=== PATIENT | male | born 1980 | race Caucasian/White ===

== ENCOUNTER 2016-10-03 07:54 | Day surgery (SDC) | payer OTHER ==
[2016-10-03] MEDS ORDERED: MIDAZOLAM 2 MG/2 ML INJ ONE (08:04)
[2016-10-03] MEDS ORDERED: ONDANSETRON HCL INJ/PF 4 MG/2 ML SDV ONE (08:05)
[2016-10-03] MEDS ORDERED: PROPOFOL INJ 200 MG/20 ML VIAL IV ONE (08:05)
[2016-10-03] MEDS ORDERED: HYDROMORPHONE HCL INJ/PF 2 MG/ML AMPULE ONE (08:05)
[2016-10-03] MEDS ORDERED: DEXAMETHASONE SOD PHOS INJ 10 MG/1 ML VIAL ONE (08:05)
[2016-10-03] MEDS: OXYMETAZOLINE HCL 0.05% NASAL SPRAY 15 ML BOTTLE ONE ×2 (09:02)
[2016-10-03] MEDS: FENTANYL CITRATE INJ/PF 100 MCG/2 ML AMPUL ONE ×2 (09:37→10:16)
[2016-10-03] MEDS ORDERED: OXYCODONE-ACETAMINOPHEN 5-325 MG TABLET ONE (09:48)
--- NOTE | 2016-10-03 13:18 | OPERATIVE REPORT E ---
Operative Report NAME: MERARY LACKEY : 1980 AGE: 36Y DATE OF SURGERY: 10/03/2016 ROOM: INDICATIONS FOR PROCEDURE: This is a 36-year-old male with a history of chronic tonsillitis. Please see his outpatient medical record for complete details regarding his medical history and examination. PREOPERATIVE DIAGNOSIS: Chronic tonsillitis. POSTOPERATIVE DIAGNOSIS: Chronic tonsillitis. PROCEDURE PERFORMED: Tonsillectomy. PRIMARY SURGEON: TOMER MUELLER M.D. FINDINGS: Bilateral symmetric cryptic tonsils. ESTIMATED BLOOD LOSS: 5 mL. DESCRIPTION OF OPERATION: After properly identifying the patient, obtaining informed consent, verifying surgical site, the patient was brought to the main operating room and placed in the supine position and general endotracheal anesthesia was then obtained in a standard fashion. Bed was turned 90 degrees and the patient's neck was extended via shoulder roll and draped in the usual manner. Formal surgical time-out was then called. A Jn-Silverio type mouth gag with slotted tongue depressor was inserted open and suspended from [place] stand. Surgical time-out was performed. There was no evidence of bifid uvula or submucosal cleft palate by inspection and palpation. An electrocautery-assisted tonsillectomy was then performed. The right tonsil was retracted inferomedially. An incision was made at the superior pole. Subcapsular plane of dissection was then developed and the tonsil was excised without complication. Hemostasis within the fossa was obtained using suction cautery. Similar procedure was performed for the left tonsil. Oropharynx was irrigated with normal saline. Mouth gag was removed. The mouth, teeth, lips, and gums were inspected and found to be free of any surgical trauma. The patient was then returned to anesthesia. He was awoken in the operating room and taken to the PACU in stable condition having tolerated the procedure well. DICTATING PHYSICIAN: TOMER MUELLER M.D. [id number] PHY#: [id number] ID: [id number] JOB#: [id number] ACCT: [id number] cc:TOMER MUELLER M.D. >
== END 2016-10-03 10:56 | disposition home or self-care (01) ==
LOC: SC 07:54
PROVIDERS: ATTEND Otolaryngology
PROC: 0CTPXZZ Resection of Tonsils, External Approach (ICD-10-PCS; principal; 2016-10-03 09:00)
DX: J35.1 Hypertrophy of tonsils (principal); J30.2 Other seasonal allergic rhinitis; Z79.899 Other long term (current) drug therapy
CPT/HCPCS: 88304 ×2; 42826; J2250; J3010; J1170; J3490; J2405; J2704; J1100; 170